=== PATIENT | male | born 1945 | race Caucasian/White ===

== ENCOUNTER 2017-09-03 06:18 | Inpatient (IN) | payer OTHER ==
[2017-09-03] VITALS (21 sets, daily range): BP systolic 95–136; BP diastolic 63–91
[~2017-09-03] VITALS: Ht 185.4 cm; Wt 56.4 kg
[~2017-09-03 06:18] MED LIST: ADVAIR 250/501 DISK IH; ALTACE10 MG PO; AMITRIPTYLINE HCL PO; AMITRIPTYLINE100 MG PO; AMOX TR-K CLV1 EAC4 PO; APRESOLINE100 MG PO; CALCIUM 500 MG1 EACH PO; CARAFATE1 GM PO; CILOSTAZOL100 MG PO; CLONIDINE HCL0.1 MG PO; Catapres PO; Ceftin PO; Diflucan PO; ELAVIL100 MG PO; FEROSUL325 MG PO; FOLIC ACID1 MG PO; Feosol PO; Folvite PO; LASIX20 MG PO; LONITEN2.5 MG PO; LOPRESSOR100 M1 PO; LOPRESSOR50 MG PO; LORAZEPAM0.5 MG PO; Lasix PO; Lorazepam PO; METHADONE10 MG PO; METHadone HCl PO; METOPROLOL TART50 MG PO; MINOXIDIL2.5 MG PO; NORVASC10 MG PO; Norvasc PO; OMEPRAZOLE40 M1 PO; PERCOCET 5/31 TABLET PO; PLETAL100 MG PO; PRILOSEC40 MG PO; Potassium Gluconate PO; Protonix PO; RAMIPRIL10 MG PO; SENNA PLUS TAB1 EACH PO; SPIRIVA RESPIMAT4 GM IH; VITAMIN B-12250 MCG PO; VITAMIN D-32000 UNI1 PO; VITAMIN D32000 UNI1 PO; Vitamin B-12 PO; Zithromax PO; oxyCODONE PO
[2017-09-03 06:37] LABS: BASE EXCESS -0.8 mEq/L (-3 to +3); BICARBONATE 21.1 mEq/L (22-26); COMMENTS - BLOOD GASES A+C+; DEVICE NC; O2 FLOW 7 L/MIN; PCO2 27 mm Hg (35-45); PO2 50 mm Hg (80-100); SITE RR
[2017-09-03 06:38] LABS: TOTAL RESP RATE 30 resp/min
[2017-09-03 06:52] LABS: EOSINOPHIL (%) 0 % (0-5); HEMATOCRIT 23.4 % (38.0-50.0); IMMATURE GRANULOCYTE (%) 0.6 % (0.0-0.7); IMMATURE GRANULOCYTE COUNT 0.1 K/uL; INSTRUMENT ABS NEUTROPHIL CT 16.8 K/uL; MCH 19.9 PG (29.0-34.0); MCHC 28.6 G/DL (30.0-36.0); MCV 69.4 FL (86-99); MEAN PLAT.VOLUME 10.1 uM^3 (9.0-12.4); MONOCYTE (%) 4.2 % (3-12); MONOCYTE COUNT 0.8 K/uL (0-0.8); NEUTROPHIL (%) 89.9 % (45-76); NEUTROPHIL COUNT 16.8 K/uL (1.8-6.4); NRBC (%) 0.1 /100 WBC (0-0); PLATELET COUNT 336 K/uL (156-360); RBC DIS.WIDTH-CV 18.7 % (11.8-14.6); RED BLOOD COUNT 3.37 M/uL (4.00-5.50); WHITE BLOOD COUNT 18.6 K/uL (4.1-10.2)
[2017-09-03 07:23] LABS: CHLORIDE 108 mEq/L (99-109); POTASSIUM 4.3 mEq/L (3.7-5.4); SODIUM 140 mEq/L (136-147)
[2017-09-03 07:25] LABS: GLUCOSE 120 mg/dL (70-99)
[2017-09-03 07:26] LABS: ANION GAP 12 MEQ/L (2-14)
[2017-09-03 07:27] LABS: TOTAL BILIRUBIN 0.3 mg/dL (0.0-1.0)
[2017-09-03 07:29] LABS: ALKALINE PHOSPHATASE 133 IU/L (3-129); GFR ESTIMATE (CALCULATED) > 59 mL/min/
[2017-09-03 07:30] LABS: UREA NITROGEN (BUN) 25 mg/dL (9-23)
[2017-09-03 07:32] LABS: CREATINE KINASE 939 IU/L (1-294); TOTAL CK 939 IU/L (1-294)
[2017-09-03 07:39] LABS: TROP-I INTERPRETATION POSITIVE; TROPONIN-I 1.58 ng/mL (0.0-0.30)
[2017-09-03] MEDS ORDERED: OMEPRAZOLE40 M1 PO (09:16)
[2017-09-03] MEDS ORDERED: ROXICODONE5 MG PO (09:16)
[2017-09-03] MEDS ORDERED: ACETAMINOPHEN650 M6 PO (09:17)
[2017-09-03] MEDS ORDERED: LONITEN10 MG PO (09:17)
[2017-09-03] MEDS ORDERED: BREO ELLIPTA I1 EACH IH (09:19)
[2017-09-03] MEDS ORDERED: VENTOLIN HFA18 GM IH (09:20)
[2017-09-03 10:56] LABS: METH RESISTANT S AUREUS PCR NEGATIVE (NEGATIVE)
[2017-09-03 10:57] LABS: PROBE CHECK PASS; SPECIMEN PROCESSING CONTROL PASS
[2017-09-03 15:52] LABS: HEMATOCRIT 31.4 % (38.0-50.0); MCH 22.4 PG (29.0-34.0); MCHC 30.6 G/DL (30.0-36.0); MEAN PLAT.VOLUME 10.2 uM^3 (9.0-12.4); NRBC (%) 0.1 /100 WBC (0-0); PLATELET COUNT 280 K/uL (156-360); RBC DIS.WIDTH-CV 19.9 % (11.8-14.6); RBC DIS.WIDTH-SD 52.1 % (39-53); WHITE BLOOD COUNT 20.5 K/uL (4.1-10.2)
[2017-09-03 15:56] LABS: INTER. NORMALIZED RATIO 1.1; MCV 73.4 FL (86-99); PROTHROMBIN TIME 12.4 SEC (10.2-12.9); RED BLOOD COUNT 4.28 M/uL (4.00-5.50)
[2017-09-03 15:59] LABS: PTT 31.3 SEC (25-37)
[2017-09-03 16:27] LABS: TROP-I INTERPRETATION POSITIVE; TROPONIN-I 1.53 ng/mL (0.0-0.30)
[2017-09-03 20:10] LABS: HEMATOCRIT 31.1 % (38.0-50.0); MCV 72.5 FL (86-99)
[2017-09-04] VITALS (16 sets, daily range): BP systolic 103–143; BP diastolic 69–101
[2017-09-04 00:30] LABS: HEMATOCRIT 29.4 % (38.0-50.0); MCV 71.7 FL (86-99)
[2017-09-04 00:52] LABS: TROP-I INTERPRETATION POSITIVE
[2017-09-04 00:53] LABS: TROPONIN-I 2.11 ng/mL (0.0-0.30)
[2017-09-04 05:37] LABS: HEMATOCRIT 29.8 % (38.0-50.0); MCV 72.5 FL (86-99)
[2017-09-04 05:52] LABS: ANION GAP 15 MEQ/L (2-14); CHLORIDE 112 MEQ/L (99-109); GFR ESTIMATE (CALCULATED) > 59 mL/min/; GLUCOSE 115 mg/dL (70-99); MAGNESIUM 1.9 mg/dl (1.3-2.7); SAMPLE HEMOLYSIS CHECK 0; SAMPLE ICTERIC CHECK 0; SAMPLE LIPEMIA CHECK 0; UREA NITROGEN (BUN) 21 mg/dL (9-23)
[2017-09-04 05:59] LABS: POTASSIUM 3.4 MEQ/L (3.7-5.4); SODIUM 148 MEQ/L (136-147)
[2017-09-04 07:05] LABS: INTERNAL CONTROL VALID? YES
[2017-09-04 08:46] LABS: HEMATOCRIT 29.3 % (38.0-50.0); MCV 72.9 FL (86-99)
== END 2017-09-04 18:20 | DRG 377 ==
LOC: EME 06:18 → EDOF 08:40 → 4WEST 08:40 → ENRESERV 08:42 → CANRESERV 08:42 → ENRESERV 08:48 → 4WEST 09:17 → ENRESERV 09-04 14:09 → 4WEST 09-04 14:27 → CANRESERV 09-04 15:31 → ENRESERV 09-04 15:31 → 4WEST 09-04 18:20
PROVIDERS: Emergency Medicine; Internal Medicine Critical Care Medicine
PROC: 30233N1 Transfusion of Nonautologous Red Blood Cells into Peripheral Vein, Percutaneous Approach (ICD-10-PCS; principal; 2017-09-03)
PROC: 5A09358 Assistance with Respiratory Ventilation, Less than 24 Consecutive Hours, Intermittent Positive Airway Pressure (ICD-10-PCS; 2017-09-03)
DX: K92.2 Gastrointestinal hemorrhage, unspecified (principal); J96.01 Acute respiratory failure with hypoxia; I21.A1 Myocardial infarction type 2; J44.0 Chronic obstructive pulmonary disease with (acute) lower respiratory infection; J18.9 Pneumonia, unspecified organism; D62 Acute posthemorrhagic anemia; E87.2 Acidosis; I11.0 Hypertensive heart disease with heart failure; I50.9 Heart failure, unspecified; I48.91 Unspecified atrial fibrillation; J84.10 Pulmonary fibrosis, unspecified; I08.1 Rheumatic disorders of both mitral and tricuspid valves; I27.20 Pulmonary hypertension, unspecified; N28.9 Disorder of kidney and ureter, unspecified; D50.0 Iron deficiency anemia secondary to blood loss (chronic); M79.7 Fibromyalgia; K21.9 Gastro-esophageal reflux disease without esophagitis; I73.9 Peripheral vascular disease, unspecified; F41.9 Anxiety disorder, unspecified; F32.9 Major depressive disorder, single episode, unspecified; Z51.5 Encounter for palliative care; Z66 Do not resuscitate; F17.200 Nicotine dependence, unspecified, uncomplicated; Z91.81 History of falling; I25.2 Old myocardial infarction; Z79.891 Long term (current) use of opiate analgesic; Z87.11 Personal history of peptic ulcer disease; Z82.49 Family history of ischemic heart disease and other diseases of the circulatory system
CPT/HCPCS: 36600; 71010; 80048; 80053; 81003; 82550; 82553; 82803; 83605; 83735; 83880; 84484; 85014; 85018; 85025; 85027; 85610; 85730; 86850; 86900; 86901; 86920; 87040; 87070; 87205; 87449; 87641; 93005; 93306; 94002; 94640; 94640 76; 94799; 99202; 99281; 99285; C9113; J0295; J0456; J0696; J1940; J2060; J2270; J2310; J7030; J7050; J7644; P9016